=== PATIENT | female | born 1980 | race Caucasian/White ===

== ENCOUNTER 2016-02-24 07:06 | Inpatient (IN) | payer OTHER ==
[2016-02-24] MEDS ORDERED: OXYTOCIN IN LR 500 ML IV ONE (08:17)
[2016-02-24] MEDS ORDERED: PENICILLIN G POTASSIUM 5 MMU in NS 0.9% (MINI-BAG PLUS) 100 ML IV ONE (08:18)
[2016-02-24] MEDS ORDERED: IV START KIT ONE (08:29)
[2016-02-24] MEDS ORDERED: LACTATED RINGERS 1,000 ML ONE (08:29)
[2016-02-24] MEDS ORDERED: LACTATED RINGERS 1,000 ML IV SCH ×2 (08:30→14:50)
[2016-02-24] MEDS ORDERED: PENICILLIN G POTASSIUM 5 MMU VIAL ONE (08:30)
[2016-02-24] MEDS ORDERED: NS 0.9% (MINI-BAG PLUS) 100 ML IV ONE (08:30)
[2016-02-24 09:06] LABS: HEMATOCRIT 36.7 % (37.0-47.0); HEMOGLOBIN 12.3 gm/l (12.0-16.0); MEAN CELL VOLUME 97.6 fl (81.0-99.0); MEAN CORPUSCULAR HEMOGLOBIN 32.7 pg (27.0-31.0); MEAN CORPUSCULAR HGB CONC 33.5 g/dl (33.0-37.0); RED CELL DISTRIBUTION WIDTH 12.3 % (11.5-14.5)
[2016-02-24] MEDS ORDERED: LIDOCAINE 1% (PRES FREE) 30 ML VIAL ONE (09:45)
[2016-02-24] MEDS ORDERED: OXYTOCIN 10 UNITS/ML VIAL ONE (09:45)
[2016-02-24] MEDS ORDERED: MINERAL OIL 25 ML BOT ONE (09:45)
[2016-02-24] MEDS ORDERED: LIDOCAINE Viscous 2% 15 ML UDCUP ONE (09:45)
[2016-02-24] MEDS ORDERED: PUMP TUBING ONE (09:46)
--- NOTE | 2016-02-24 10:19 | PCMAN ---
OB Admission Note - History : 3 Term: 1 : 0 Abortions (S&E): 1 Livin EDC:: 03/08/16 Gestational Age (weeks): 38 Days (#/7): 1 Admit Cervical Dilation:: 3 Admit Cervical Effacement (%):: 70 Admit Station:: -3 Admit Presentaton:: vtx Membrane Status: Ruptured Rupture (Date): 02/23/16 Rupture (Time): 21:00 Membranes Comment:: clear Contractions: Yes Contraction Frequency:: irreg Heart Rate:: 145 Status:: category 1 EFW:: 6.5 Summary of Course:: Dates by LMP, confirmed by US. course uncomplicated. - Labs Blood Type: O (+) positive Hct/Hgb:: 36.7/12.3 Rubella Status: Immune GBS Status: Positive Abnormal Labs: None (1 hr glucose 120) - Physical Exam General: Afebrile, Mild Distress Psych/Mental Status: Mood/Affect Appropriate, Tearful Neurological: Grossly Intact, Alert, Oriented x 4, Normal Gait, Normal Speech, Normal Reflexes, Cranial Nerves 3-12 Intact HEENT: Atraumatic, PERRLA, EOMI, Mucous membr. moist/pink Lungs: Clear to Auscultation Bilaterally Cardiovascular: Regular Rate and Rhythm, No Murmur Abdomen: Normal Bowel Sounds Genitourinary: Normal Female Genitalia Rectal Exam: Deferred Extremities: Full ROM, No Edema DTR: Patellar (L): 2+ (Brisk, Normal), Patellar (R): 2+ (Brisk, Normal) Skin: Normal Color, Warm, Dry, Intact, No Rash - Problems (1) with 38 completed weeks gestation Status: Acute Code: Z3A.38 Assessment/Plan: Expect . PROM, will start Pitocin (2) PROM (premature rupture of membranes) Status: Acute Code: O42.90 Assessment/Plan: NO labor in over 12 hours, will start Pitocin. Expect . (3) GBS (group B Streptococcus carrier), +RV culture, currently Status: Acute Code: O99.820 Assessment/Plan: Penicillin started per protocol at 0845
[2016-02-24] MEDS ORDERED: FENTANYL/ROPIVACAINE EPIDURAL 250 ML EP ONE (10:21)
[2016-02-24] MEDS ORDERED: EPIDURAL PUMP SET ONE (10:21)
[2016-02-24] MEDS: OXYTOCIN IN LR 500 ML IV PRN ×7 (10:42→18:10)
[2016-02-24] MEDS: LACTATED RINGERS 1,000 ML IV SCH ×2 (10:44→14:51)
[2016-02-24 11:35] VITALS: BMI 25.9
[2016-02-24] MEDS ORDERED: PENICILLIN G 3 MIL UNIT PREMIX 50 ML IV ONE ×2 (12:36→16:12)
[2016-02-24] MEDS: PENICILLIN G 3 MIL UNIT PREMIX 3 MMU in Premix (D5W) 50 ml 1 EACH IV SCH ×2 (12:45→17:03)
[2016-02-24] MEDS ORDERED: EPIDURAL PROCEDURE TRAY ONE (14:41)
[2016-02-24] MEDS ORDERED: ONDANSETRON 4 MG/2ML 2 ML VIAL IV PRN (14:50)
[2016-02-24] MEDS ORDERED: DIPHENHYDRAMINE HCL 50 MG/1 ML VIAL IV PRN (14:50)
[2016-02-24] MEDS ORDERED: LACTATED RINGERS 500 ML IV PRN (14:50)
[2016-02-24] MEDS ORDERED: NALBUPHINE HCL 20 MG/ML AMP IV PRN (14:50)
[2016-02-24] MEDS ORDERED: METOCLOPRAMIDE HCL 5 MG/ML 2ML VIAL IV PRN (14:50)
[2016-02-24] MEDS ORDERED: SODIUM CHLORIDE 0.9% 500 ML IV PRN (14:50)
[2016-02-24] MEDS ORDERED: NALOXONE HCL 0.4 MG/ML VIAL IV PRN (14:50)
[2016-02-24] MEDS ORDERED: EPHEDRINE SULFATE 50 MG/ML 1ML VIAL IV PRN (14:50)
[2016-02-24] MEDS ORDERED: FENTANYL/ROPIVACAINE EPIDURAL 250 ML EP SCH (15:42)
--- NOTE | 2016-02-24 19:12 | PCMDEL ---
Delivery Note - Labor 1st stage (hr/min):: 3 hr/ 58 min 2nd stage (hr/min):: 12 min 3rd stage (hr/min):: 5 min Total (hr/min):: 4 hr/ 15 min Pushed (hr/min):: 12 min - Delivery Delivery (Date): 02/24/16 Delivery (Time): 18:50 Gender: Female Presentation: Cephalic Position: OA Umbilical Cord: 3 Vessel Delayed Cord Clamping:: 2-3 min 1 Minute Total: 8 5 Minute Total: 9 Placenta:: intact EBL:: 150 ml Perineum:: intact Suture:: N/A Anesthesia/Meds:: Epidural Length ROM:: 22 hr/ 20 min Comments:: Uncomplicated vaginal delivery. Some FHR decelerations with pushing, baby vigorous at .
[2016-02-24] MEDS ORDERED: OXYCODONE HCL 5 MG TABLET PO PRN (19:15)
[2016-02-24] MEDS ORDERED: ACETAMINOPHEN 325 MG TABLET PO PRN (19:15)
[2016-02-24] MEDS ORDERED: LANOLIN 50 APPLIC/7G TUBE TP PRN (19:15)
[2016-02-24] MEDS ORDERED: BENZOCAINE/MENTHOL 60 APPLIC/BOT TP PRN (19:15)
[2016-02-24] MEDS ORDERED: DOCUSATE SODIUM 100 MG CAPSULE PO PRN (19:15)
[2016-02-24] MEDS: IBUPROFEN 800 MG TABLET PO PRN (19:56)
[2016-02-24] MEDS: OXYCODONE/ACETAMINOPHEN 5/325 MG TABLET PO PRN (23:24)
[2016-02-25] MEDS: IBUPROFEN 800 MG TABLET PO PRN ×3 (03:22→14:45)
[2016-02-25 06:50] LABS: HEMATOCRIT 33.1 % (37.0-47.0); HEMOGLOBIN 11.3 gm/l (12.0-16.0)
[2016-02-25] MEDS: OXYCODONE/ACETAMINOPHEN 5/325 MG TABLET PO PRN ×3 (08:59→19:34)
--- NOTE | 2016-02-25 18:43 | PDOC44 ---
- Subjective Day: 1 Reports Flatus, Reports Pain Tolerable, Reports , Reports Lochia Light, Reports Tolerating Regular Diet - Objective Temp Pulse Resp BP Pulse Ox 98.1 F 63 18 127/74 02/25/16 14:29 02/25/16 14:29 02/25/16 14:29 02/25/16 14:29 Lab Results 02/25/16 06:40 Hgb 11.3 L Hct 33.1 L Current Medications Generic Name Dose Route Start Last Admin Trade Name Freq PRN Reason Stop Dose Admin Acetaminophen 325 - 650 mg 02/24/16 19:15 Tylenol PO Q4H PRN Pain (Mild) Benzocaine/Menthol 1 applic 02/24/16 19:15 Dermoplast TP PRN PRN Patient Comfort Docusate Sodium 100 mg 02/24/16 19:15 Colace PO DAILY PRN Comfort Emollient Ointment 1 applic 02/24/16 19:15 02/25/16 12:25 Xod-S-Zrxxtn TP 1 tube PRN PRN Administration sore nipples Ibuprofen 800 mg 02/24/16 19:15 02/25/16 14:45 Motrin PO 800 mg Q6H PRN Administration Pain (Mild) Oxycodone HCl 5 - 10 mg 02/24/16 19:15 Roxicodone PO Q3H PRN Pain (Severe) Oxycodone/Acetaminophen 1 - 2 tab 02/24/16 19:15 02/25/16 14:45 Percocet 5/325 PO 1 tab Q4H PRN Administration Pain (Moderate) Sodium Chloride 10 ml 02/24/16 08:17 02/24/16 19:56 Normal Saline 10ml Flush IV 10 ml PRN PRN Administration IV Flush Sodium Chloride 10 ml 02/25/16 01:00 02/25/16 12:58 Normal Saline 10ml Flush IV Not Given Q8HR MADHU - Physical Exam General: Afebrile, No Acute Distress Psych/Mental Status: Mood/Affect Appropriate, Bonding Well Neurological: Alert, Oriented x 4, Normal Reflexes, Cranial Nerves 3-12 Intact HEENT: Atraumatic, PERRLA, EOMI, Mucous membr. moist/pink Lungs: Clear to Auscultation Bilaterally Cardiovascular: Regular Rate and Rhythm, No Murmur Breast: Soft, Skin intact, Nipples Intact, No Nipples Cracked Fundus: Firm, Midline Abdomen: Normal Bowel Sounds Genitourinary: Normal Female Genitalia, No Edema Lochia: Light Extremities: Full ROM, No Edema, No Tenderness Skin: Normal Color, Warm, Dry, Intact, No Rash - Problems:Assessment/Plan (1) Normal vaginal delivery Status: Acute Assessment/Plan: stable, continue routine PP care. Disposition: Stable, Anticipate DC Home Tomorrow
[2016-02-26] MEDS: IBUPROFEN 800 MG TABLET PO PRN ×2 (01:59→12:18)
[2016-02-26 02:11] VITALS: BP 127/80
[2016-02-26] MEDS: OXYCODONE/ACETAMINOPHEN 5/325 MG TABLET PO PRN ×2 (06:23→12:18)
--- NOTE | 2016-02-26 11:12 | PDOC39B ---
Hospital Course: ADMIT DATE: 02/24/16 DISCHARGE DATE: 02/26/16 ADMISSION DIAGNOSES: 38 week , GBS positive, Ruptured membranes without labor PROCEDURES: Spontaneous Vaginal Delivery HISTORY OF PRESENT ILLNESS: 35 year old G3 T1 L1 at 38 weeks 1 days presenting with SROM of clear fluid without contractions. She chose to sleep the night at home then presented to [facility] and was diagnosed with ruptured membranes. Penicillin was started for her GBS positive status and then Pitocin started subsequently. She required epidural for pain management and eventually reached complete then had an uncomplicated vaginal delivery. HOSPITAL COURSE: The patient had an uncomplicated post course. By day of discharge the patient is ambulating, eating, voiding, and passing flatus without difficulty. Pain is controlled and lochia is appropriate. She is [] - Physical Exam Vital Signs: Temp Pulse Resp BP Pulse Ox 98.5 F 89 16 127/80 02/26/16 02:08 02/26/16 02:08 02/26/16 02:08 02/26/16 02:08 General: Afebrile, No Acute Distress Psych/Mental Status: Mood/Affect Appropriate, Bonding Well Neurological: Grossly Intact, Alert, Oriented x 4, Normal Speech, Normal Reflexes, Cranial Nerves 3-12 Intact HEENT: Atraumatic, PERRLA, EOMI, Mucous membr. moist/pink Lungs: Clear to Auscultation Bilaterally Cardiovascular: Regular Rate and Rhythm, No Murmur Breast: Soft, Skin intact, Nipples Intact, No Nipples Cracked Fundus: Firm, Midline, Below Umbilicus Abdomen: Normal Bowel Sounds Genitourinary: Normal Female Genitalia, No Edema Lochia: Light Extremities: Full ROM, No Edema Skin: Normal Color, Warm, Dry, Intact, No Rash Wound: Dressing Clean/Dry/Intact - Discharge Diagnosis (1) Normal vaginal delivery Status: Acute Assessment/Plan: stable, discharge home, FU 6 weeks. - Discharge Plan Condition: Good Disposition: Home Instruction Forms: Vaginal Discharge Instructions Prescriptions: Ibuprofen [IBUPROFEN 800 MG TABLET (SHF)] 800 mg PO Q6H PRN #30 tablet PRN Reason: Pain (Mild) Oxycodone HCl/Acetaminophen [PERCOCET 5/325 MG TABLET (SHF)] 1 - 2 tab PO Q4H PRN #20 tablet PRN Reason: Pain (Moderate) Vit W-Ca,Fe,FA(<1 mg) [ Vitamins] 1 each PO DAILY #100 tablet Cholecalciferol (Vitamin D3) [Vitamin D3] 5,000 units PO DAILY #100 capsule
== END 2016-02-26 15:30 | disposition home or self-care (01) | DRG 775 ==
LOC: FBCOUT 07:06 → FBC 07:06 → FBCOUT 08:20 → FBC 08:20
PROVIDERS: ADMIT Family Medicine; ATTEND Family Medicine
PROC: 10E0XZZ Delivery of Products of Conception, External Approach (ICD-10-PCS; principal; 2016-02-24)
PROC: 3E033VJ Introduction of Other Hormone into Peripheral Vein, Percutaneous Approach (ICD-10-PCS; 2016-02-24)
DX: O42.92 Full-term premature rupture of membranes, unspecified as to length of time between rupture and onset of labor (principal); O76 Abnormality in fetal heart rate and rhythm complicating labor and delivery; O09.523 Supervision of elderly multigravida, third trimester; O99.824 Streptococcus B carrier state complicating childbirth; Z37.0 Single live birth; Z3A.38 38 weeks gestation of pregnancy